=== PATIENT | male | born 1995 | race Caucasian/White ===

== ENCOUNTER 2018-06-03 20:44 | Emergency (ER) | payer BC ==
[2018-06-03 22:17] VITALS: RESP 19
--- NOTE | 2018-06-03 22:41 | XR ---
EXAMINATION TYPE: XR chest 2V DATE OF EXAM: 06/03/2018 COMPARISON: NONE HISTORY: Cough TECHNIQUE: Frontal and lateral views of the chest are obtained. FINDINGS: There is some airspace infiltrate in the posterior basal segment right lower lobe. The oth er lung zheng are clear. Heart and mediastinum are normal. Diaphragm is normal. Bony thorax appears normal. IMPRESSION: Right lower lobe pneumonia.
[2018-06-03] MEDS ORDERED: ALBUTEROL NEBULIZED 2.5 MG/3 ML INHALATION STA (22:57)
[2018-06-03] MEDS ORDERED: ACETAMINOPHEN TAB 325 MG TAB PO STA (22:57)
--- NOTE | 2018-06-03 23:01 | ED ---
URI HPI - General Chief Complaint: Upper Respiratory Infection Stated Complaint: Cough Time Seen by Provider: 06/03/18 22:14 Source: patient Mode of arrival: ambulatory Limitations: no limitations - History of Present Illness Initial Comments: This patient is 22-year-old man presenting to be evaluated for a constellation of symptoms that includes cough, congestion, fever and some chest pains. The patient states that the symptoms came on 2-3 weeks ago and started with congestion and cough. Since that time he seems to have settled into the chest. He states that there is a little bit of substernal burning or aching when he coughs. Patient denies history of lung disease, but does state that he smokes half to 1 pack a day. The cough is largely nonproductive. MD Complaint: fever, cough, nasal congestion Onset/Timin -: week(s) Severity: moderate Quality: dull Consistency: constant Improves With: nothing Worsens With: nothing Associated Symptoms: fever, nasal congestion, cough, chest pain - Related Data Previous Rx's Medication Instructions Recorded Albuterol Inhaler [Ventolin Hfa 1 - 2 puff INHALATION Q6HR PRN #1 06/03/18 Inhaler] inhaler Azithromycin [Zithromax Z-pack] 250 mg PO DIRECTED #6 tab 06/03/18 predniSONE 20 mg PO BID #8 tab 06/03/18 Allergies Allergy/AdvReac Type Severity Reaction Status Date / Time No Known Allergies Allergy Verified 06/03/18 22:24 Review of Systems ROS Statement: Those systems with pertinent positive or pertinent negative responses have been documented in the HPI. ROS Other: All systems not noted in ROS Statement are negative. Constitutional: Reports: fever. Denies: chills, weakness ENT: Reports: congestion Respiratory: Reports: as per HPI, cough, wheezes. Denies: dyspnea, hemoptysis Cardiovascular: Reports: as per HPI, chest pain. Denies: palpitations, edema, syncope Gastrointestinal: Denies: abdominal pain, vomiting, diarrhea Musculoskeletal: Denies: back pain Skin: Denies: rash Neurological: Denies: headache Past Medical History Past Medical History: Seizure Disorder History of Any Multi-Drug Resistant Organisms: None Reported Past Surgical History: No Surgical Hx Reported Past Psychological History: No Psychological Hx Reported Smoking Status: Current every day smoker Past Alcohol Use History: None Reported Past Drug Use History: None Reported General Exam Limitations: no limitations General appearance: alert, in no apparent distress Head exam: Present: atraumatic ENT exam: Present: normal oropharynx Neck exam: Present: normal inspection Respiratory exam: Present: wheezes, chest wall tenderness. Absent: respiratory distress, rales, rhonchi, stridor, accessory muscle use, decreased breath sounds , prolonged expiratory Cardiovascular Exam: Present: regular rate, normal rhythm, normal heart sounds. Absent: systolic murmur, diastolic murmur, rubs, gallop GI/Abdominal exam: Present: soft. Absent: tenderness Extremities exam: Present: normal inspection, normal capillary refill. Absent: pedal edema, calf tenderness Skin exam: Present: warm, dry, intact, normal color. Absent: rash Course Vital Signs 06/03/18 06/03/18 21:18 22:15 Temperature 101.2 F H Pulse Rate 109 H Respiratory 22 19 Rate Blood Pressure 123/74 O2 Sat by Pulse 96 Oximetry Disposition Clinical Impression: Pneumonia Disposition: HOME SELF-CARE Condition: Good Instructions: Pneumonia (ED) Prescriptions: Albuterol Inhaler [Ventolin Hfa Inhaler] 1 - 2 puff INHALATION Q6HR PRN #1 inhaler PRN Reason: Wheezing Azithromycin [Zithromax Z-pack] 250 mg PO DIRECTED #6 tab predniSONE 20 mg PO BID #8 tab Is patient prescribed a controlled substance at d/c from ED?: No Referrals: Bird Martinez MD [Primary Care Provider] - 1-2 days
[2018-06-03] MEDS ORDERED: AZITHROMYCIN 500 MG TAB PO STA (23:03)
[2018-06-04 00:38] VITALS: BP 121/89; PULSE 95; TEMP 100.2
== END 2018-06-04 00:30 | disposition home or self-care (01) ==
LOC: EC 20:44
DX: J18.9 Pneumonia, unspecified organism (principal); F17.200 Nicotine dependence, unspecified, uncomplicated
CPT/HCPCS: 94640; 71046; 99283; 96365; J0696